=== PATIENT | female | born 1960 | race Caucasian/White ===

== ENCOUNTER 2018-09-21 18:59 | Emergency (ER) | payer MEDICAID ==
[~2018-09-21] VITALS: Ht 177.8 cm; Wt 90.7 kg
[2018-09-21] MEDS ORDERED: Norco 7.5-3251 EACH PO (20:36)
== END 2018-09-21 21:04 | disposition home or self-care (01) ==
LOC: ER 18:59
DX: S82.65XA Nondisplaced fracture of lateral malleolus of left fibula, initial encounter for closed fracture (principal); W01.0XXA Fall on same level from slipping, tripping and stumbling without subsequent striking against object, initial encounter; F17.210 Nicotine dependence, cigarettes, uncomplicated
CPT/HCPCS: 29515; 73610; 99283-25